=== PATIENT | female | born 1965 | race Two or more races ===

== ENCOUNTER 2020-07-11 05:08 | Day surgery (SDC) | payer OTHER ==
[~2020-07-11 05:08] MED LIST: SYNTHROID75 MCG PO
== END 2020-07-11 13:15 | disposition home or self-care (01) ==
LOC: CIR.AMB 05:08
PROVIDERS: ATTEND Obstetrics & Gynecology Maternal & Fetal Medicine
DX: N95.0 Postmenopausal bleeding (principal); Z20.828 Contact with and (suspected) exposure to other viral communicable diseases